=== PATIENT | female | born 1985 | race Caucasian/White ===

== ENCOUNTER 2019-10-04 01:04 | Emergency (ER) | payer OTHER ==
[~2019-10-04] VITALS: Ht 162.6 cm; Wt 71.7 kg
[2019-10-04 01:06] VITALS: BP 136/90
== END 2019-10-04 02:08 | disposition home or self-care (01) ==
LOC: ER 01:04
DX: S61.511D Laceration without foreign body of right wrist, subsequent encounter (principal); X58.XXXD Exposure to other specified factors, subsequent encounter